=== PATIENT | female | born 1985 | race Asian ===

== ENCOUNTER 2024-05-12 20:15 | Emergency (ER) | payer OTHER ==
[~2024-05-12] VITALS: Ht 157.5 cm; Wt 72.6 kg
[2024-05-12 20:20] VITALS: BP 133/72; PULSE 90; RESP 18; TEMP 98.2; O2SAT 98
[2024-05-12 21:00] VITALS: BP 130/27; PULSE 89; RESP 16; O2SAT 98
[2024-05-12] MEDS ORDERED: LIDOCAINE 4% 1 EA PATCH TP ONE (21:01)
[2024-05-12] MEDS: KETOROLAC 30 MG/ML VIAL IM ONE (21:04)
[2024-05-12 21:06] LABS: BILIRUBIN,URINE NEGATIVE (NEGATIVE); BLOOD, URINE NEGATIVE (NEGATIVE); COLOR,URINE YELLOW (YELLOW); LEUKOCYTE ESTERASE ,URINE TRACE (NEGATIVE); NITRITE, URINE NEGATIVE (NEGATIVE); PROTEIN,URINE NEGATIVE (NEGATIVE); UGLUCOSE NEGATIVE (NEGATIVE); UROBILINOGEN,URINE 0.2 EU/dL (0.2 - 1)
[2024-05-12 21:11] LABS: APPEARANCE,URINE HAZY (CLEAR)
[2024-05-12 21:13] LABS: BACTERIA,URINE 1+ /HPF (None Seen); MUCUS,URINE None Seen /LPF (None Seen); RBC,URINE 0 /HPF (0-5); SQUAMOUS EPITHELIAL CELL,UR 4-10 (MOD) /LPF (0-3 (FEW)); WBC,URINE 0-5 /HPF (0-5)
[2024-05-12] MEDS: LIDOCAINE 4% 1 EA PATCH TP ONE (21:14)
[2024-05-12] MEDS ORDERED: LID5T TP (21:20)
[2024-05-12] MEDS ORDERED: NITR100C7 PO (21:20)
[2024-05-12] MEDS ORDERED: CYCL-711 PO (21:20)
== END 2024-05-12 21:28 | disposition home or self-care (01) ==
LOC: MED 20:15
DX: M54.42 Lumbago with sciatica, left side (principal); N39.0 Urinary tract infection, site not specified; Z79.899 Other long term (current) drug therapy
CPT/HCPCS: 81001; 81025; 96372; 99283; J1885

== ENCOUNTER 2024-05-19 10:25 | Emergency (ER) | payer OTHER ==
[~2024-05-19] VITALS: Ht 157.5 cm; Wt 52.2 kg
[~2024-05-19 10:25] MED LIST: CYCL-711 PO; LID5T TP; NITR100C7 PO
[2024-05-19 10:52] VITALS: BP 115/71; PULSE 93; RESP 17; RESP 28; TEMP 97.3; TEMP 97.7; O2SAT 100; O2SAT 99
[2024-05-19] MEDS: IBUPROFEN 600 MG TAB PO ONE (11:44)
[2024-05-19 13:07] VITALS: BP 111/81; PULSE 89; RESP 17; TEMP 97.3; O2SAT 99
== END 2024-05-19 13:09 | disposition home or self-care (01) ==
LOC: MED 10:25
DX: M25.552 Pain in left hip (principal); Z79.899 Other long term (current) drug therapy; V89.2XXA Person injured in unspecified motor-vehicle accident, traffic, initial encounter; Y93.89 Activity, other specified; Y92.89 Other specified places as the place of occurrence of the external cause; Y99.8 Other external cause status
CPT/HCPCS: 73502; 81025; 99283